=== PATIENT | female | born 1995 | race Two or more races ===

== ENCOUNTER 2025-06-10 17:15 | Emergency (ER) | payer MEDICAID, OTHER ==
[~2025-06-10] VITALS: Ht 165.1 cm; Wt 82.0 kg
[2025-06-10] MEDS ORDERED: ACET500T58 PO (19:59)
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
--- NOTE | 2025-06-10 20:30 | DVH ---
EXAM: CT CERVICAL WITHOUT CONTRAST INDICATION: neck pain EXAM DATE: 06/10/2025 07:51 PM COMPARISON: None Technique: CT exam of the cervical spine was performed without intravenous contrast. CT Dose: CTDI volume is 21.76 mGy. Dose-length product is 580.84 mGy*cm Findings: No evidence of acute fracture. Alignment is within normal limits. Straightening of cervical lordosis. No prevertebral edema. Paraspinal soft tissues are within normal limits. Visualized lung apices are clear. IMPRESSION: NO EVIDENCE OF ACUTE FRACTURE OR TRAUMATIC MALALIGNMENT OF THE CERVICAL SPINE.
--- NOTE | 2025-06-10 20:44 | DVH ---
INDICATION: thoracic back pain TECHNIQUE: 4 views of the thoracic spine were obtained. COMPARISON: None FINDINGS: No evidence of vertebral fracture or compression deformity. Normal curvature without listhesis. No significant degenerative change. Unremarkable visualized chest. Right upper quadrant surgical clips. IMPRESSION: 1. No acute radiographic finding of the thoracic spine.
[2025-06-10 21:00] VITALS: BP 117/81; PULSE 85; RESP 16; TEMP 98.4; O2SAT 96
== END 2025-06-10 21:05 | disposition home or self-care (01) ==
LOC: ER 17:15
DX: S16.1XXA Strain of muscle, fascia and tendon at neck level, initial encounter (principal); S29.012A Strain of muscle and tendon of back wall of thorax, initial encounter; V43.52XA Car driver injured in collision with other type car in traffic accident, initial encounter; Y92.410 Unspecified street and highway as the place of occurrence of the external cause; Y93.89 Activity, other specified; Y99.8 Other external cause status
CPT/HCPCS: 72070; 72125